=== PATIENT | male | born 1960 | race Caucasian/White ===

== ENCOUNTER 2023-02-28 13:45 | Emergency (ER) | payer OTHER, SELFPAY ==
[2023-02-28 13:48] VITALS: BP 147/106; PULSE 95; RESP 16; TEMP 36.1; O2SAT 97
[2023-02-28] MEDS: TETANUS,DIPHTHERIA,AC PERTUSSIS ADULT (0.5 ML) BOOSTRIX IM (15:00)
--- NOTE | 2023-02-28 15:40 | ED.WOUNDLAC ---
HPI - Wound/Laceration General Chief Complaint: Wound/Laceration Stated Complaint: cut right hand with knife Time Seen by Provider: 02/28/23 13:53 History of Present Illness HPI narrative: Patient is a 62-year-old male presenting with a laceration. Patient states that he was using a large knife to cut a zip tie when he struck his right hand. States that he sustained a large laceration to the dorsum of his right hand near his thumb. Denies further injuries. Denies sensory loss or weakness. Denies anticoagulation. Related Data Allergies Allergy/AdvReac Type Severity Reaction Status Date / Time No Known Allergies Allergy Verified 02/28/23 13:50 Review of Systems Review of Systems: All systems reviewed & are unremarkable except as noted in HPI and below Exam Narrative: GENERAL: Well-appearing, well-nourished, and in no acute distress. HEAD: Normocephalic, atraumatic. EYES: PERRLA and EOMI. ENT: Nares clear, no rhinorrhea or epistaxis. Mucous membranes moist. NECK: Supple. CHEST: No respiratory distress. HEART: Regular rate and rhythm. Normal peripheral pulses. ABDOMEN: Soft, nontender, nondistended EXTREMITIES: Normal range of motion. No edema. SKIN: Warm, dry, no rash. 2cm laceration to dorsum of R hand at base of thumb NEURO: No focal deficits. Alert and oriented x3. PSYCH: Normal mood and affect. Course Vital Signs Vital signs: Vital Signs Temperature 97 F L 02/28/23 13:48 Pulse Rate 95 02/28/23 13:48 Respiratory Rate 16 02/28/23 13:48 Blood Pressure 147/106 H 02/28/23 13:48 Pulse Oximetry 97 02/28/23 13:48 Oxygen Delivery Room Air 02/28/23 13:48 Temperature 97 F L 02/28/23 13:48 Pulse Rate 95 02/28/23 13:48 Respiratory Rate 16 02/28/23 13:48 Blood Pressure 147/106 H 02/28/23 13:48 Pulse Oximetry 97 02/28/23 13:48 Oxygen Delivery Room Air 02/28/23 13:48 Procedures Laceration Laceration 1: Date: 02/28/23 Time: 16:26 Site: hand Side (If applicable): right Size (cm): 2 Description: linear Depth: simple, single layer Local Anesthetic: lidocaine 1% and with epi Pre-repair: wound explored and irrigated ====== Skin Level ====== Skin layer closed with: nylon Size (cm): 3-0 Number of sutures: 7 Technique: simple, interrupted ====== Subcutaneous Layer ====== ====== Muscle Layer ====== ====== Tendon Layer ====== MDM - Wound/Laceration MDM Narrative Medical decision making narrative: Patient is a 62-year-old male presenting with a laceration to his right hand. Tetanus will be updated. Laceration repaired at bedside without complication. Please see procedure note below. Advise he have the sutures removed in 10 to 14 days. Appropriate return precautions given. Advised PCP follow-up. Patient voices understanding and is agreeable with plan. Discharged in stable condition. Differential Diagnosis Differential diagnosis: Likely laceration Medical Records Attestation: I reviewed the patient's medical records. Critical Care Time Critical Care Time Critical Care Time: No Discharge Plan Discharge Clinical Impression: Laceration Patient Disposition: Home, Self-Care Condition: Stable Instructions: Antibiotic Form, Care For Your Stitches (ED), Laceration (ED) Additional Instructions: Please have the sutures removed in 10 to 14 days. We have provided the number for hand surgery to follow-up as needed. If you develop worsening pain, redness, purulent drainage, or other concerning symptoms arise, please return to the ER. Follow-up/Referrals: Joseph Lim MD [Physician] - UNKNOWN,DOCTOR [Primary Care Provider] - Stand Alone Forms: Work/School Release IP
== END 2023-02-28 16:41 | disposition home or self-care (01) ==
PROVIDERS: Emergency Provider Emergency Medicine
DX: S61.411A Laceration without foreign body of right hand, initial encounter (principal); Z23 Encounter for immunization; W26.0XXA Contact with knife, initial encounter
CPT/HCPCS: 12001; 90471; 90715; 99282